=== PATIENT | female | born 1950 | race Caucasian/White ===

== ENCOUNTER 2019-08-20 15:14 | Outpatient (CLI) | payer MEDICARE, OTHER ==
[~2019-08-20 15:14] MED LIST: NO HOME MEDS; OMEP20TA23 PO; ONDA4TAB59 PO
== END 2019-08-20 23:59 | disposition home or self-care (01) ==
LOC: RAD 15:14
PROVIDERS: ATTEND Family Medicine
DX: R13.14 Dysphagia, pharyngoesophageal phase (principal); K21.9 Gastro-esophageal reflux disease without esophagitis
CPT/HCPCS: 74230

== ENCOUNTER 2019-12-18 05:17 | Day surgery (SDC) | payer MEDICARE, OTHER ==
[2019-12-10 12:13] LABS: BASOPHILS % (AUTO) 0.7 % (0-1); EOSINOPHILS # (AUTO) 0.1 X10'3 (0-0.9); EOSINOPHILS % (AUTO) 1.8 % (0-6); LYMPHOCYTES # (AUTO) 2.1 X10'3 (1.1-4.8); LYMPHOCYTES % (AUTO) 36.6 % (21-51); MEAN CORPUSCULAR HEMOGLOBIN 31.9 PG (27.0-31.0); MEAN CORPUSCULAR HGB CONC 33.8 g/dL (33.0-36.5); MEAN CORPUSCULAR VOLUME 94.5 FL (78-98); MEAN PLATELET VOLUME 7.5 FL (7.4-10.4); MONOCYTES # (AUTO) 0.3 X10'3 (0-0.9); NEUTROPHILS # (AUTO) 3.2 X10'3 (1.8-7.7); NEUTROPHILS % (AUTO) 55.9 % (42-75); PRE OP HEMATOCRIT 39.9 % (35.0-45.0); PRE OP HEMOGLOBIN 13.5 g/dL (12.0-16.0); PRE OP PLATELET COUNT 236 X10'3 (140-440); RED BLOOD COUNT 4.22 X10'6 (4.20-5.60); RED CELL DISTRIBUTION WIDTH 13.6 % (11.5-14.5)
[2019-12-10 12:29] LABS: ALBUMIN 3.6 G/DL (3.4-5.0); ALBUMIN/GLOBULIN RATIO 1.2 (1.1-1.5); ALKALINE PHOSPHATASE 106 IU/L (46-116); BLOOD UREA NITROGEN 11 MG/DL (7-18); BUN/CREATININE RATIO 14.3 (6.6-38.0); CALCIUM 8.9 MG/DL (8.5-10.1); CHLORIDE 107 MMOL/L (99-107); CREATININE 0.77 MG/DL (0.40-0.90); PRE OP ALT 42 U/L (30-65); PRE OP ANION GAP 6 (8-16); PRE OP AST 27 U/L (10-37); PRE OP BILIRUB, TOTAL 0.4 MG/DL (0.0-1.0); PRE OP GLUCOSE 100 MG/DL (70-104); PRE OP SODIUM 141 MMOL/L (135-145); TOTAL CARBON DIOXIDE 28.1 MMOL/L (24-32); TOTAL PROTEIN 6.6 G/DL (6.4-8.2); eGFR 75 ML/MIN
[~2019-12-18] VITALS: Ht 165.1 cm; Wt 90.7 kg
[2019-12-18] VITALS (10 sets, daily range): BP systolic 90–145; BP diastolic 42–81
[~2019-12-18 05:17] MED LIST changes: +CYCL-394 PO; +MELO-100 PO; +METO25TA6 PO; -NO HOME MEDS; -OMEP20TA23 PO; -ONDA4TAB59 PO; +ringers solution, lacted 1,000 ML IV SCH
[2019-12-18] MEDS ORDERED: cefazolin/dext.iso 2gm/50ml 50 ML IV ONE (05:30)
[2019-12-18] MEDS ORDERED: famotidine 20mg tablet PO ONE (05:30)
[2019-12-18] MEDS ORDERED: DOCUMENT DATE & TIME OF BETA-BLOCKER PO ONE (05:30)
[2019-12-18] MEDS ORDERED: LIDOcaine 1% (10mg/ml) 2ml vial ONE (06:17)
[2019-12-18] MEDS ORDERED: BUPIVAcaine/PF 2.5 mg/ml (0.25%) 30ml vial ONE ×2 (06:38→08:37)
[2019-12-18] MEDS ORDERED: triamcinolone acetonide 40mg/ml inj ONE ×2 (06:38→08:37)
[2019-12-18] MEDS ORDERED: fentaNYL/PF 50MCG/1 ML 2ML syringe ONE (07:12)
[2019-12-18] MEDS ORDERED: propofol inj 20 ML IV ONE (07:13)
[2019-12-18] MEDS ORDERED: midazolam 2 mg/2 ml injection ONE (07:13)
[2019-12-18] MEDS ORDERED: ringers solution, lacted 1,000 ML IV SCH (07:16)
[2019-12-18] MEDS ORDERED: morphine 4 MG/ML inj SYRINge IV PRN (07:20)
[2019-12-18] MEDS ORDERED: meperidine/PF 25mg/ml syringe IV PRN ×2 (07:20)
[2019-12-18] MEDS ORDERED: ondansetron/PF 4mg/2ml inj IV PRN (07:20)
[2019-12-18] MEDS ORDERED: morphine 2 MG/ML inj. syringe IV PRN (07:20)
[2019-12-18] MEDS ORDERED: proCHLORperazine 10 MG/2 ml inj IV PRN (07:20)
[2019-12-18] MEDS ORDERED: sevoflurane 250ml liquid IH ONE (07:28)
[2019-12-18] MEDS ORDERED: ePHEDrine 50MG/ML INJ. ONE (07:50)
--- NOTE | 2019-12-18 09:40 | NUR ---
Received from OR via BED, accompanied by Anesthesiologist DR HERNANDES-- and report given by Anesthesiolgist. PATIENT A&OX4, DENIES PAIN, V/S WNL, NEUROVASCULAR CHECKS INTACT, 20G PIV LUE, SCD ON, BILATERAL KNEE DRESSINGS CDI
[2019-12-18] MEDS: meperidine/PF 25mg/ml syringe IV PRN ×2 (09:50→10:11)
--- NOTE | 2019-12-18 11:00 | NUR ---
PATIENT A&OX4, DENIES PAIN, V/S WNL, NEUROVASCULAR CHECKS INTACT, 20G PIV LUE D/C, SCD OFF, BILATERAL KNEE DRESSINGS CDI. I HAVE REVIEWED D/C INSTRUCTIONS WITH PATIENT AND FAMILY AND THEY HAVE VERBALIZED UNDERSTANDING. PATIENT D/C HOME WITH ALL BELONGINGS AND FAMILY GAVE TRANSPORT HOME.
== END 2019-12-18 11:00 | disposition home or self-care (01) ==
LOC: PAS 05:17
PROVIDERS: ATTEND Orthopaedic Surgery
DX: S83.231A Complex tear of medial meniscus, current injury, right knee, initial encounter (principal); S83.271A Complex tear of lateral meniscus, current injury, right knee, initial encounter; S83.232A Complex tear of medial meniscus, current injury, left knee, initial encounter; S83.272A Complex tear of lateral meniscus, current injury, left knee, initial encounter; M94.262 Chondromalacia, left knee; M94.261 Chondromalacia, right knee; M17.0 Bilateral primary osteoarthritis of knee; I10 Essential (primary) hypertension; G47.33 Obstructive sleep apnea (adult) (pediatric); G89.29 Other chronic pain; F43.10 Post-traumatic stress disorder, unspecified; F41.9 Anxiety disorder, unspecified; F32.9 Major depressive disorder, single episode, unspecified; E78.5 Hyperlipidemia, unspecified; M16.11 Unilateral primary osteoarthritis, right hip; E66.8 Other obesity; Z68.33 Body mass index [BMI] 33.0-33.9, adult; Z88.8 Allergy status to other drugs, medicaments and biological substances; Z98.1 Arthrodesis status; Z98.890 Other specified postprocedural states; Z79.899 Other long term (current) drug therapy; Z20.828 Contact with and (suspected) exposure to other viral communicable diseases; X58.XXXA Exposure to other specified factors, initial encounter; Y93.89 Activity, other specified; Y92.89 Other specified places as the place of occurrence of the external cause; Y99.8 Other external cause status
CPT/HCPCS: 29873; 29879; 29880; 36415; 80053; 82948; 85025; 87635; 93005; J2001; J2175; J2250; J2704; J3010; J3301; J3370; J3490; A4215; A4618; A6250; A6449; A7000; J7120

== ENCOUNTER 2022-11-08 13:50 | Outpatient (CLI) | payer MEDICARE, OTHER ==
[~2022-11-08 13:50] MED LIST changes: +LOP25T PO; -METO25TA6 PO; -ringers solution, lacted 1,000 ML IV SCH
== END 2022-11-08 23:59 | disposition home or self-care (01) ==
LOC: RAD 13:50
PROVIDERS: ATTEND Family Medicine
DX: R13.12 Dysphagia, oropharyngeal phase (principal)
CPT/HCPCS: 74230